=== PATIENT | female | born 1985 | race African-American/Black ===

== ENCOUNTER 2018-01-02 21:26 | Emergency (ER) | payer OTHER ==
[~2018-01-02] VITALS: Ht 175.3 cm; Wt 76.4 kg
[2018-01-02 21:53] LABS: BASOPHILS % (AUTO) 0.5 % (0.0-2.0); EOSINOPHILS % (AUTO) 2.8 % (1.0-6.0); HEMOGLOBIN 13.8 g/dL (12.0-16.0); LYMPHOCYTES # (AUTO) 3.5 K/uL (1.0-4.8); LYMPHOCYTES % (AUTO) 44.6 % (22.0-44.0); MEAN CORPUSCULAR HEMOGLOBIN 32.4 pg (26.0-34.0); MEAN CORPUSCULAR HGB CONC 34.6 G/dL (31.0-37.0); MEAN CORPUSCULAR VOLUME 94 fL (80-100); MONOCYTES # (AUTO) 0.6 K/uL (0.1-1.0); MONOCYTES % (AUTO) 7.7 % (2.0-9.0); NEUTROPHILS # (AUTO) 3.5 K/uL (1.8-7.7); NEUTROPHILS % (AUTO) 44.4 % (40.0-70.0); PLATELET COUNT (AUTO) 396 K/uL (150-450); RED BLOOD CELL COUNT(AUTO) 4.26 MIL/uL (4.00-5.20)
[2018-01-03 00:13] VITALS: BP 136/81
== END 2018-01-03 00:16 | disposition home or self-care (01) ==
LOC: EMS 21:26
DX: N93.9 Abnormal uterine and vaginal bleeding, unspecified (principal); F12.90 Cannabis use, unspecified, uncomplicated; Z97.5 Presence of (intrauterine) contraceptive device; Z98.890 Other specified postprocedural states
CPT/HCPCS: 86901; 99284